=== PATIENT | male | born 1985 | race Caucasian/White ===

== ENCOUNTER 2016-10-19 17:31 | Emergency (ER) | payer SELFPAY ==
[~2016-10-19] VITALS: Wt 106.6 kg
[~2016-10-19 17:31] MED LIST: HYDROCODONE BIT1 T11 PO; IBU800 M1 PO
[2016-10-19] MEDS ORDERED: Motrin,Rufen800 MG PO (20:08)
== END 2016-10-19 20:09 | disposition home or self-care (01) ==
LOC: ED 17:31
DX: M25.521 Pain in right elbow (principal); Z91.038 Other insect allergy status

== ENCOUNTER → 2017-02-03 | Outpatient (CLI) | payer OTHER ==
[~2017-02-03] MED LIST changes: +Motrin,Rufen800 MG PO
--- NOTE | ~2017-02-03 | HM ---
[place], [place] HOLTER MONITOR REPORT NAME: DONALDO LOYOLA UNIT #: [id number] ROOM: DOCTOR: WILD BOOTH MD BIRTHDATE: [birth year] DOS: 02/05/2017 48-HOUR HOLTER INDICATION: Chest pain, palpitations. REFERRING PHYSICIAN: Dr. Mendenhall. The patient underwent 48-hour Holter. The patient's baseline rhythm was normal sinus with an average heart rate of 76 beats per minute, minimum heart rate of 44 beats per minute with a maximum heart rate of 138 beats per minute. SUPRAVENTRICULAR ACTIVITY: The patient was noted to have isolated PACs. VENTRICULAR ACTIVITY: None. No significant blocks, pauses, or bradycardia. Diary was reviewed which noted at times the patient removed the Holter for shower, no other diary entries. SUMMARY OF FINDINGS: Benign 48-hour Holter with no recorded symptoms. Rare PACs were noted. WILD BOOTH MD CM:HOLTER:HOLTER MONITOR REPORT [id number] WILD BOOTH MD
== END | disposition home or self-care (01) ==
LOC: CARD 09:00
DX: R07.89 Other chest pain (principal)

== ENCOUNTER → 2017-02-19 | Outpatient (CLI) | payer OTHER ==
[~2017-02-19] MED LIST changes: +HYDROCHLOROTH12.5 M3 PO; +NEXIUM 24HR20 MG PO
== END | disposition home or self-care (01) ==
LOC: CARD 03:34
DX: I10 Essential (primary) hypertension (principal); R07.9 Chest pain, unspecified

== ENCOUNTER 2017-08-07 08:47 | Emergency (ER) | payer OTHER ==
[~2017-08-07] VITALS: Ht 175.2 cm; Wt 102.1 kg
[2017-08-07] MEDS ORDERED: NAPROSYN500 MG PO (08:55)
== END 2017-08-07 10:14 | disposition home or self-care (01) ==
LOC: ED 08:47
DX: S46.211A Strain of muscle, fascia and tendon of other parts of biceps, right arm, initial encounter (principal); R03.0 Elevated blood-pressure reading, without diagnosis of hypertension; F17.200 Nicotine dependence, unspecified, uncomplicated; X50.9XXA Other and unspecified overexertion or strenuous movements or postures, initial encounter; Y93.89 Activity, other specified; Y92.89 Other specified places as the place of occurrence of the external cause; Y99.8 Other external cause status

== ENCOUNTER 2017-08-28 22:32 | Emergency (ER) | payer OTHER ==
[~2017-08-28] VITALS: Wt 102.1 kg
[~2017-08-28 22:32] MED LIST changes: +NAPROSYN500 MG PO
[2017-08-28] MEDS ORDERED: CEPHALEXIN500 M1 PO (23:34)
== END 2017-08-28 23:51 | disposition home or self-care (01) ==
LOC: ED 22:32
DX: L03.012 Cellulitis of left finger (principal); Z79.899 Other long term (current) drug therapy; Z91.030 Bee allergy status

== ENCOUNTER 2017-09-22 20:47 | Emergency (ER) | payer SELFPAY ==
[~2017-09-22] VITALS: Ht 175.2 cm; Wt 99.8 kg
[~2017-09-22 20:47] MED LIST changes: +CEPHALEXIN500 M1 PO
[2017-09-22] MEDS ORDERED: HYCODAN/HYDROMET5 ML PO (22:06)
[2017-09-22] MEDS ORDERED: PROAIR HFA8.5 GM INH (22:06)
== END 2017-09-22 22:04 | disposition home or self-care (01) ==
LOC: ED 20:47
DX: B34.9 Viral infection, unspecified (principal); Z79.899 Other long term (current) drug therapy; Z91.030 Bee allergy status

== ENCOUNTER 2018-11-08 04:25 | Emergency (ER) | payer OTHER ==
[~2018-11-08] VITALS: Ht 175.2 cm; Wt 102.1 kg
[~2018-11-08 04:25] MED LIST changes: +HYCODAN/HYDROMET5 ML PO; +PROAIR HFA8.5 GM INH
== END 2018-11-08 06:06 | disposition home or self-care (01) ==
LOC: ED 04:25
DX: S66.912A Strain of unspecified muscle, fascia and tendon at wrist and hand level, left hand, initial encounter (principal); S69.92XA Unspecified injury of left wrist, hand and finger(s), initial encounter; Z79.899 Other long term (current) drug therapy; Z79.2 Long term (current) use of antibiotics; X50.0XXA Overexertion from strenuous movement or load, initial encounter; Y93.89 Activity, other specified; Y92.89 Other specified places as the place of occurrence of the external cause; Y99.8 Other external cause status

== ENCOUNTER 2019-03-29 21:35 | Emergency (ER) | payer SELFPAY ==
[~2019-03-29] VITALS: Ht 175.2 cm; Wt 102.1 kg
--- NOTE | ~2019-03-29 | EKG ---
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
--- NOTE | ~2019-03-29 | EKG ---
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
[2019-03-29 21:57] LABS: BASO % 0.5 % (0.0-1.0); EOS # 0.1 10*3/uL (0.0-0.4); EOS % 1.5 % (1.0-4.0); HEMATOCRIT 43.9 % (42.0-52.0); HEMOGLOBIN 14.3 g/dl (14.0-18.0); LYMPH # 2.4 10*3/uL (1.3-4.4); LYMPH % 28.7 % (27.0-41.0); MEAN CELL VOLUME 86.2 fl (80.0-94.0); MEAN CORPUSCULAR HGB 28.1 pg (27.0-31.0); MEAN CORPUSCULAR HGB CONC 32.6 g/dl (33.0-37.0); MEAN PLATELET VOLUME 10.8 fl (9.6-12.3); MONO # 0.5 10*3/uL (0.1-1.0); MONO % 6.3 % (3.0-9.0); NEUT # 5.2 10*3/uL (2.3-7.9); NEUT % 62.6 % (47.0-73.0); PLATELET COUNT AUTOMATED 243 10*3/uL (130-400); RED BLOOD COUNT 5.09 10*6/uL (4.50-5.90); RED CELL DISTRI WIDTH 13.5 % (0-14.5); WHITE BLOOD COUNT 8.3 10*3/uL (4.8-10.8)
[2019-03-29 22:07] LABS: ACT PARTIAL THROMBO TIME 24.3 SECONDS (20.0-32.1); INTERNATIONAL NORM RATIO 0.9 (2.0-3.5)
[2019-03-29 22:20] LABS: ALBUMIN 4.2 gm/dl (3.1-4.5); ALKALINE PHOSPHATASE 81 U/L (45-117); BUN 12 mg/dl (7-24); CHLORIDE 112 mmol/L (98-107); CREATININE 1.25 mg/dL (0.70-1.30); POTASSIUM 3.7 mmol/L (3.5-5.1); SGOT/AST 36 IU/L (3-35); SGPT/ALT 89 U/L (12-78); SODIUM 145 mmol/L (136-145); TOTAL PROTEIN 7.3 gm/dL (6.4-8.2)
[2019-03-29 22:30] LABS: TROPONIN I < 0.015 ng/ml (<0.045)
== END 2019-03-30 01:35 | disposition home or self-care (01) ==
LOC: ED 21:35
PROVIDERS: Student in an Organized Health Care Education/Training Program
DX: R07.89 Other chest pain (principal); R10.13 Epigastric pain; I10 Essential (primary) hypertension; Z79.899 Other long term (current) drug therapy; Z79.2 Long term (current) use of antibiotics

== ENCOUNTER → 2020-10-09 | Outpatient (CLI) | payer SELFPAY | END | disposition home or self-care (01) | LOC: RAD 17:34 | PROVIDERS: ATTEND Family Medicine | DX: M54.2 Cervicalgia (principal); M25.512 Pain in left shoulder ==

== ENCOUNTER → 2021-10-16 | Outpatient (CLI) | payer BC | END | disposition home or self-care (01) | LOC: RAD 14:51 | PROVIDERS: ATTEND Family Medicine | DX: J30.2 Other seasonal allergic rhinitis (principal); I10 Essential (primary) hypertension ==